=== PATIENT | male | born 1955 | race Caucasian/White ===

== ENCOUNTER 2018-08-22 19:45 | Emergency (ER) | payer OTHER ==
[~2018-08-22] VITALS: Ht 195.6 cm; Wt 141.5 kg
[~2018-08-22 19:45] MED LIST: ACTOPLUS MET 11 EAC1 PO; ADULT LOW DOSE81 MG PO; BYSTOLIC 5 MG5 M1 PO; BYSTOLIC20 MG PO; CARDIZEM CD240 MG PO; EFFER-K 20 MEQ20 MEQ PO; FOLIC ACID1 MG PO; JANUMET 50-1,01 EACH PO; LASIX 40 MG TAB40 M1 PO; LIPITOR80 MG PO; LISINOPRIL40 MG PO; METHOTREXATE 22.5 M1 PO; NITROGLYCERIN0.4 MG SL; NITROGLYCERIN0.4 MG SUBLING; NORCO 5-325 TA1 EACH PO; PERCOCET 5-3251 EACH PO; TRIBENZOR 40-51 EAC1 PO; TRIBENZOR 40-51 EACH PO; VALIUM5 MG PO
[2018-08-22] MEDS ORDERED: IRBESARTAN300 MG PO (20:13)
[2018-08-22] MEDS ORDERED: AMLODIPINE BESY10 MG PO (20:13)
[2018-08-22] MEDS ORDERED: METFORMIN HCL500 MG PO (20:14)
[2018-08-22] MEDS ORDERED: JARDIANCE10 MG PO (20:14)
[2018-08-22] MEDS ORDERED: NEURONTIN 300300 M1 PO (20:15)
[2018-08-22] MEDS ORDERED: LOPRESSOR50 PO (20:15)
[2018-08-22 20:38] LABS: ABSOLUTE NEUTROPHILS 6.8 thou/uL (1.4-8.2); BASOPHILS 0.8 % (0.0-2.0); EOSINOPHILS 3.5 % (0.0-3.0); HEMATOCRIT 46.3 % (42.0-52.0); HEMOGLOBIN 15.9 gm/dL (14.0-18.0); LYMPHOCYTES 22.2 % (24.0-44.0); MCHC 34.3 g/dL (28.0-37.0); MCV 93.3 fL (80.0-100.0); MONOCYTES 7.4 % (1.0-8.0); PLATELET COUNT 144 thou/uL (150-400); POLYS 66.1 % (36.0-66.0); RBC 4.97 mil/uL (4.50-6.00); RDW 13.5 % (10.5-14.5); WBC 10.3 thou/uL (4.0-11.0)
[2018-08-22 20:42] LABS: CALCIUM 9.4 mg/dL (8.5-10.1); CREATININE 1.2 mg/dL (0.7-1.3); POTASSIUM 4.3 mmol/L (3.5-5.1)
[2018-08-22 20:48] LABS: ALBUMIN 3.6 g/dL (3.4-5.0); TOTAL BILIRUBIN 0.3 mg/dL (<0.1-1.0); TOTAL PROTEIN 8.1 g/dL (6.4-8.2)
[2018-08-22] MEDS ORDERED: FLONASE 0.05%50 MCG NASAL (21:13)
[2018-08-22 21:31] VITALS: BP 184/97
== END 2018-08-22 21:37 | disposition home or self-care (01) ==
LOC: ER 19:45
PROVIDERS: Physician Assistant
DX: J32.9 Chronic sinusitis, unspecified (principal); E86.0 Dehydration; I10 Essential (primary) hypertension; E78.5 Hyperlipidemia, unspecified

== ENCOUNTER 2019-08-23 12:11 | Emergency (ER) | payer OTHER ==
[~2019-08-23] VITALS: Ht 198.1 cm; Wt 136.5 kg
[2019-08-23 12:11] VITALS: BP 187/110
[~2019-08-23 12:11] MED LIST changes: +AMLODIPINE BESY10 MG PO; +FLONASE 0.05%50 MCG NASAL; +IRBESARTAN300 MG PO; +JARDIANCE10 MG PO; +LOPRESSOR50 PO; +METFORMIN HCL500 MG PO; +NEURONTIN 300300 M1 PO
[2019-08-23] MEDS ORDERED: ULTRAM 50MG TAB50 MG PO (13:49)
== END 2019-08-23 14:24 | disposition home or self-care (01) ==
LOC: ER 12:11
DX: S93.402A Sprain of unspecified ligament of left ankle, initial encounter (principal); I10 Essential (primary) hypertension; E78.5 Hyperlipidemia, unspecified; X58.XXXA Exposure to other specified factors, initial encounter; Y93.89 Activity, other specified; Y92.89 Other specified places as the place of occurrence of the external cause; Y99.8 Other external cause status

== ENCOUNTER → 2019-10-27 | Outpatient (CLI) | payer OTHER ==
[~2019-10-27] MED LIST changes: +ULTRAM 50MG TAB50 MG PO
== END ==
LOC: SJCVC 10:50
DX: R00.0 Tachycardia, unspecified (principal); I25.10 Atherosclerotic heart disease of native coronary artery without angina pectoris; I10 Essential (primary) hypertension; E78.00 Pure hypercholesterolemia, unspecified; R00.2 Palpitations; E78.5 Hyperlipidemia, unspecified; R06.02 Shortness of breath; E07.89 Other specified disorders of thyroid; Z95.1 Presence of aortocoronary bypass graft

== ENCOUNTER → 2020-02-13 | Outpatient (CLI) | payer OTHER | LOC: SJCVCIMAG 01-23 09:08 | PROVIDERS: ATTEND Internal Medicine Cardiovascular Disease | DX: I25.10 Atherosclerotic heart disease of native coronary artery without angina pectoris (principal); I49.1 Atrial premature depolarization; E78.5 Hyperlipidemia, unspecified; I10 Essential (primary) hypertension; E11.9 Type 2 diabetes mellitus without complications; Z95.1 Presence of aortocoronary bypass graft; Z79.899 Other long term (current) drug therapy; Z87.891 Personal history of nicotine dependence ==

== ENCOUNTER → 2021-01-30 | Outpatient (CLI) | payer OTHER | LOC: SJCVC 14:05 | PROVIDERS: ATTEND Internal Medicine Cardiovascular Disease | DX: I25.10 Atherosclerotic heart disease of native coronary artery without angina pectoris (principal); I63.9 Cerebral infarction, unspecified; I10 Essential (primary) hypertension; E78.00 Pure hypercholesterolemia, unspecified; E11.9 Type 2 diabetes mellitus without complications; R07.89 Other chest pain; E66.01 Morbid (severe) obesity due to excess calories; G47.33 Obstructive sleep apnea (adult) (pediatric); E78.5 Hyperlipidemia, unspecified; Z98.890 Other specified postprocedural states; Z95.1 Presence of aortocoronary bypass graft; Z95.0 Presence of cardiac pacemaker; Z86.73 Personal history of transient ischemic attack (TIA), and cerebral infarction without residual deficits; Z87.891 Personal history of nicotine dependence; Z82.49 Family history of ischemic heart disease and other diseases of the circulatory system ==

== ENCOUNTER → 2021-03-26 | Outpatient (CLI) | payer OTHER | LOC: SJCVCIMAG 07:53 | PROVIDERS: ATTEND Internal Medicine Cardiovascular Disease | DX: I07.1 Rheumatic tricuspid insufficiency (principal); I11.9 Hypertensive heart disease without heart failure; R00.0 Tachycardia, unspecified; E11.9 Type 2 diabetes mellitus without complications; I25.10 Atherosclerotic heart disease of native coronary artery without angina pectoris; R07.89 Other chest pain; Z86.73 Personal history of transient ischemic attack (TIA), and cerebral infarction without residual deficits; Z87.891 Personal history of nicotine dependence; Z79.82 Long term (current) use of aspirin; Z79.899 Other long term (current) drug therapy; Z95.1 Presence of aortocoronary bypass graft ==

== ENCOUNTER → 2021-03-28 | Outpatient (CLI) | payer OTHER | LOC: SJCVC 08:52 | PROVIDERS: ATTEND Internal Medicine Cardiovascular Disease | DX: R94.31 Abnormal electrocardiogram [ECG] [EKG] (principal); I25.10 Atherosclerotic heart disease of native coronary artery without angina pectoris; I10 Essential (primary) hypertension; E78.00 Pure hypercholesterolemia, unspecified; E11.9 Type 2 diabetes mellitus without complications; G47.33 Obstructive sleep apnea (adult) (pediatric); Z95.1 Presence of aortocoronary bypass graft; Z98.890 Other specified postprocedural states; Z79.82 Long term (current) use of aspirin; Z79.899 Other long term (current) drug therapy; Z87.891 Personal history of nicotine dependence ==

== ENCOUNTER 2021-04-03 06:17 | Observation (INO) | payer OTHER ==
[~2021-04-03] VITALS: Ht 198.1 cm; Wt 139.3 kg
[2021-04-03 07:17] VITALS: BP 134/80
[2021-04-03 07:34] LABS: ABSOLUTE NEUTROPHILS 5.6 thou/uL (1.4-8.2); BASOPHILS 0.9 % (0.0-2.0); EOSINOPHILS 3.2 % (0.0-3.0); HEMATOCRIT 43.1 % (42.0-52.0); HEMOGLOBIN 14.3 gm/dL (14.0-18.0); LYMPHOCYTES 18.2 % (24.0-44.0); MCH 32.1 pg (26.0-34.0); MCHC 33.1 g/dL (28.0-37.0); MCV 96.8 fL (80.0-100.0); MONOCYTES 7.7 % (1.0-8.0); PLATELET COUNT 177 thou/uL (150-400); RBC 4.45 mil/uL (4.50-6.00); RDW 14.8 % (10.5-14.5)
[2021-04-03] MEDS ORDERED: OXYBUTYNIN 5 MG5 M2 PO (07:40)
[2021-04-03] MEDS ORDERED: TOPROL XL50 MG PO (07:40)
[2021-04-03] MEDS ORDERED: ZETIA10 MG PO (07:41)
[2021-04-03 07:45] LABS: POTASSIUM 4.4 mmol/L (3.5-5.1)
[2021-04-03 17:14] VITALS: BP 152/67
--- NOTE | 2021-04-03 18:43 | NUR ---
PT TO THE UNIT POST CATH - GROIN SITE C/D/I. ASSESSMENT CHARTED - PT ORIENTED TO ROOM AND BEDSPACE. ORION DIET AND FLUIDS. NO CO'S OF PAIN OR NAUSEA. UP AD ALISA IN ROOM. STATES COMFORTABLE AT THE PRESENT TIME.
[2021-04-03 19:28] VITALS: BP 168/79
[2021-04-04 04:26] LABS: ALBUMIN 3.3 g/dL (3.4-5.0); CALCIUM 8.4 mg/dL (8.5-10.1); CREATININE 0.8 mg/dL (0.7-1.3); TOTAL BILIRUBIN 0.4 mg/dL (0.2-1.0); TOTAL PROTEIN 7.4 g/dL (6.4-8.2)
[2021-04-04 04:31] VITALS: BP 178/87
[2021-04-04 05:20] LABS: HEMATOCRIT 40.7 % (42.0-52.0); HEMOGLOBIN 13.5 gm/dL (14.0-18.0); MCH 32.2 pg (26.0-34.0); MCHC 33.3 g/dL (28.0-37.0); MCV 96.6 fL (80.0-100.0); RBC 4.21 mil/uL (4.50-6.00); RDW 14.6 % (10.5-14.5); WBC 7.7 thou/uL (4.0-11.0)
--- NOTE | 2021-04-04 06:48 | NUR ---
RIGHT GROIN C/D/I.NO HEMATOMA NOR BLEEDING NOTED.DENIES PAIN AND SOB.MONITOR SHOWS SR.POC CONTINUED.
[2021-04-04 07:15] VITALS: BP 174/95
[2021-04-04] MEDS ORDERED: LIPITOR40 MG PO (08:24)
[2021-04-04] MEDS ORDERED: CLOPIDOGREL75 MG PO (08:24)
[2021-04-04 11:05] VITALS: BP 89/65
[2021-04-04 15:35] VITALS: BP 165/78
[2021-04-04 16:00] VITALS: BP 115/66; BP 149/79; BP 156/75
--- NOTE | 2021-04-04 17:04 | NUR ---
AT 1600 ORTHSTATIC B/P WERE DONE; LAYING DOWN: 156/75,MAP94,P71,O2 96% SITTIN/79,MAP93,O2 96%,P 87 STANDIN/66,O2 91%, MAP81,P80
--- NOTE | 2021-04-04 17:15 | CATHLAB ---
[facility] [employer] [place] [employer] [place] [address] INVASIVE PROCEDURE REPORT Name: LOIS CORCORAN Room #: 203-P [facility] Ezequiel Winslow#: [id number] Admission: 04/03/21 Attend Phys: Adrian Villa MD, Discharge: Date of : 51 Report #: [id number] THIS REPORT FOR: cc: Gaudencio Crabtree MD, Kirk D. MD Mancuso, Gerald M. MD [facility] ~ APPROVED REPORT Study performed: 04/03/2021 08:59:44 Patient Details Patient Status: Out-Patient Room #: The patient is a 65 year-old male Event Personnel Adrian Villa Pullman Car Clerk, Tiffany Bonner RN RN, Christina Robertson RTR ScrubZaid Ja'net RTR Monitor Procedures Performed Left Heart Cath w/or w/o Coronaries 4826329 [facility] Art Access - L femoral artery* SUSI Place w/wo Plasty Single Left Main 225912 Abdominal Aortography 106304 SUSI Place w/wo Plasty Addl BR DIAG 1 C9601 DESADDL Hemostasis w/ Mynx 28569 Initial Mod Sed Same Phys/QHP Gr5y 334167 19981 Mod Sed Same Phys/QHP Ea 823188 Indication Chest pain Procedure Narrative The Right Groin^ was infiltrated with 1% Lidocaine subcutaneous anesthesia. A PINNACLE 6FR Sheath #[id number] sheath was inserted into the RFA^. Coronary angiography was performed using coronary diagnostic catheters. The right coronary system was accessed and visualized with a 6FR JR4 catheter. The left coronary system was accessed and visualized with a 6FR JL5 catheter. The left ventricle was accessed and visualized with a 6FR PIGTAIL catheter. An aortogram of the abdominal aorta was performed. Closure device was deployed with a Fr 6FR MYNXGRIP. The patient tolerated the procedure well and there were no complications associated with the procedure. There was no hematoma. Intraoperative Conscious Sedation Sedation start time: 10:05 Case end Time: 11:29 [facility] [email or web address] [address] INVASIVE PROCEDURE REPORT Name: LOIS CORCORAN Room #: 203-P [facility] [place] [facility].#: [id number] Admission: 04/03/21 Attend Phys: Adrian Villa, Discharge: Date of : 51 Report #: [id number] Fentanyl 150 mcg Versed 2.0 mg Fluoro Time: 11.80 minutes Dose: DAP 30438.80 cGycm2 4043 mGy Contrast Type and Amount: Omnipaque 250 ml Hemodynamics The aortic pressure is 189/65 mmHg with a mean of 103 mmHg. The left ventricular pressure is 189/12 mmHg with a mean of mmHg. The left ventricular end diastolic pressure is 90 mmHg. PCI Technique Lesion Percutaneous coronary intervention was performed on the LM. A LAUNCHER 6FR EBU 4 #[id number] Guide Catheter was used to engage the LM ostium. A Luge Wire .014 x 182CM #[id number] Interventional Guidewire was used to cross the lesion. STENT DEPLOYMENT A stent RESOLUTE JACKIE RX 3.0 X 8 #[id number] was inserted and inflated up to 16.00atm for 26seconds. POST STENT DEPLOYMENT BALLOON DILATION A Balloon catheter TREK NC OTW 3.25 X 8 was inserted and inflated up to 18.00atm for 18seconds. Additional Inflation: 18.00atm for 14seconds. PCI Technique Lesion 2 Percutaneous Coronary Intervention was performed on the first diagnonal branch segment. A LAUNCHER 6FR EBU 4 #[id number] Guide Catheter was used to engage the LAD ostium. A Luge Wire .014 x 182CM #[id number] Interventional Guidewire was used to cross the lesion. Balloon Dilation A Balloon catheter Sprinter OTW 2.25 x 12 #[id number] was inserted and inflated up to 14.00atm for 20seconds. Stent Deployment A stent RESOLUTE JACKIE OTW 2.25 X 12 #[id number] was inserted and inflated up to 18.00atm for 15seconds. Conclusion #1 Successful PTCA stent of an ostial left main 80% to 0% with placement of a 3.0 x 8 resolute Jackie stent postdilated to 3.2 mm MAYELIN grade III flow. Mild distal tapering of the left main giving rise to an LAD which occludes a moderate diagonal system and a circumflex OM. [facility] [address] [place] [address] INVASIVE PROCEDURE REPORT Name: LOIS CORCORAN Alejandro Room #: 203-P [facility] [place] .R.#: [id number] Admission: 04/03/21 Attend Phys: Adrian Villa, Discharge: Date of : 51 Report #: [id number] #2 successful PTCA stent of a proximal diagonal branch subtotal occluded to 0 with placement of a 2.25 x 12 resolute Reasnor MAYELIN grade III flow this vessel is not protected by bypass graft and had significant EKG changes with intervention. They have resolved. #3 the LAD is occluded proximally after the septal transmissions systems operator and the diagonal. A SEXTON to LAD is intact with mild irregularities diffuse distal disease in the LAD. #4 SVG to OM system is mildly diseased possibly of early high rising OM or ramus branch. The distal circumflex OM branches are patent through the [place] flow. With mild disease. #5 the dominant right coronary is occluded. #6 SVG to the PDA is an eccentric lesion of 80% in the mid graft somewhat complex but moderate lumen persists which appears to be nearly matched to the distal PDA AYAN which are diffusely disease and briskly filled. #7 normal left ventricular size systolic function near normal EF 50% inferior basilar inferior lateral hypokinesis. #8 abdominal aortogram revealing mild aortic ectasia small infrarenal aortic aneurysm will evaluate outpatient abdominal ultrasound. Recommendations and plan: Continue aggressive risk factor modification. Dual antiplatelet therapy has been initiated. The SVG to the PDA has a complex mid vessel lesion. It may need intervention at a later date. Significant EKG changes were noted with left main diagonal stenting these have resolved. Transferred to CCU in stable condition. <ELECTRONICALLY SIGNED> By: Adrian Villa MD, FACC 04/04/211714 14 14 Adrian Villa MD, FACC /INF
[2021-04-04 19:17] VITALS: BP 144/70
--- NOTE | 2021-04-04 19:37 | NUR ---
PATIENTS CARES WERE ASSUMED AT SHIFT CHANGE. PATIENT WAS ASSESSED AND MEDS WERE PASSED. PATIENT WAS TO DISCHARGE TODAY HOWEVER THAT PLAN WAS ABORTED. ORTHOSTATICS B/P WAS DONE AND ARE CHARTED . THEY WERE POSITIVE RESULTS. THE RESULTS WERE CALLED TO YULISSA. PT IS TO DO AN EVAL ON HIM IN THE MORNING. ROUNDS WERE MADE. THE BED ALARM IS ON. THE BED IS IN A LOW AND LOCKED POSITION
[2021-04-05] VITALS (7 sets, daily range): BP systolic 102–182; BP diastolic 69–110
--- NOTE | 2021-04-05 03:30 | NUR ---
ASSUMED CARE OF PT AT 1900, PT A/O X4. ASSESSMENT COMPLETED NOTED, PT DENIES PAIN THIS SHIFT. PT DENIES CP, DIZZINESS OR CP. OTHOSTATIC BP COMPLETED AND CHARTED. WILL CONTINUE TO WORK TOWARDS PT'S POC.
[2021-04-05 04:51] LABS: ALBUMIN 3.2 g/dL (3.4-5.0); CALCIUM 8.2 mg/dL (8.5-10.1); CREATININE 0.8 mg/dL (0.7-1.3); POTASSIUM 3.8 mmol/L (3.5-5.1); TOTAL BILIRUBIN 0.3 mg/dL (0.2-1.0); TOTAL PROTEIN 7.3 g/dL (6.4-8.2)
[2021-04-05] MEDS ORDERED: MECLIZINE HCL25 MG PO (08:11)
--- NOTE | 2021-04-05 11:29 | NUR ---
ASSUMED CARE SHIFT CHANGE. ASSESSMENT CHARTED. DENIES CP. GROIN SITE CDI NO HEMATOMA. VSS. ORTHOSTATIC BP REMAIN POSITIVE, NO C/O DIZZY OR LIGHTHEAD. PHYSICIAN NOTIFIED. DC ORDERS. DISCUSSED WITH PT AND SPOUSE COMUNICATING UNDERSTANDING. IV REMVOED. TELE REMOVED. PT LEFT UNIT WITH ALL BELONGINGS.
--- NOTE | 2021-04-05 13:31 | NUR ---
PT DC'D TO HOME TODAY WITH FAMILY AFTER BEING SEEN BY THERAPY. DIZZINESS /BP BETTER. PT INSTRUCTED TO USE A FWW AT HOME FOR SAFTEY AND HE INDICATED TO THERAPY HE HAD ACCESS TO ONE AT HOME. NO HH OR SNF INDICATED. PT WAS HELD OVERNIGHT AFTER HEART CATH DUE TO BALANCE/GAIT ISSUES. HE DOES HAVE A HX OF PREVIOUS CVA. HE IS PLANNING TO GO TO OUTPT CARDIAC REHAB. NO CM INTERVENTIONS WERE INDICATED.
== END 2021-04-05 11:32 | disposition home or self-care (01) ==
LOC: CATH 06:17 → 2N 17:04
PROVIDERS: Nurse Practitioner Adult Health; ADMIT Internal Medicine Cardiovascular Disease; ATTEND Internal Medicine Cardiovascular Disease
DX: I25.10 Atherosclerotic heart disease of native coronary artery without angina pectoris (principal); I10 Essential (primary) hypertension; E11.9 Type 2 diabetes mellitus without complications; E78.5 Hyperlipidemia, unspecified; G47.33 Obstructive sleep apnea (adult) (pediatric); Z86.73 Personal history of transient ischemic attack (TIA), and cerebral infarction without residual deficits; Z79.82 Long term (current) use of aspirin; Z79.899 Other long term (current) drug therapy

== ENCOUNTER → 2021-09-24 | Outpatient (CLI) | payer OTHER ==
[~2021-09-24] MED LIST changes: +CLOPIDOGREL75 MG PO; +LIPITOR40 MG PO; +MECLIZINE HCL25 MG PO; +OXYBUTYNIN 5 MG5 M2 PO; +TOPROL XL50 MG PO; +ZETIA10 MG PO
== END ==
LOC: SJCVC 13:41
PROVIDERS: ATTEND Internal Medicine Cardiovascular Disease
DX: I25.810 Atherosclerosis of coronary artery bypass graft(s) without angina pectoris (principal); I10 Essential (primary) hypertension; E78.00 Pure hypercholesterolemia, unspecified; I65.23 Occlusion and stenosis of bilateral carotid arteries; I63.9 Cerebral infarction, unspecified; E11.9 Type 2 diabetes mellitus without complications; G47.33 Obstructive sleep apnea (adult) (pediatric); F17.210 Nicotine dependence, cigarettes, uncomplicated; Z95.1 Presence of aortocoronary bypass graft; Z79.82 Long term (current) use of aspirin; Z79.84 Long term (current) use of oral hypoglycemic drugs; Z79.899 Other long term (current) drug therapy